=== PATIENT | female | born 1995 | race Caucasian/White ===

== ENCOUNTER 2019-06-15 00:19 | Emergency (ER) | payer MEDICAID ==
[2019-06-15] MEDS ORDERED: 0.9 % SODIUM CHLORIDE 1,000 ML BAG IV ONE (00:24)
[2019-06-15] MEDS ORDERED: LORAZEPAM 2 MG/ML VIAL IV ONE (00:24)
[2019-06-15] MEDS ORDERED: DEXTROSE 50 % IVP 50 ML DISP.SYRIN IVP ONE (00:30)
--- NOTE | 2019-06-15 00:31 | Emergency Department Record ---
History of Present Illness - General Stated Complaint: UNRESPONSIVE Time Seen by Provider: 06/15/19 00:22 Source: Patient Mode of Arrival: Ambulatory Limitations: No limitations - History of Present Illness Initial Comments: 23 yo female to male transitioning patient presents with about 15 minutes of altered mental status. The mother brought the patient by private car. She st ates the patient has depression, bulimia with frequent nausea and vomiting. He was noted to have blood in the vomit at about 11:45pm. The patient checked his glucose on mother's glucometer and it was 45. The patient took 5 glucose tablets. The patient has a history of similar with admission for malnutrition. He has a history of esophageal injury from vomiting not requiring surgery. The mother states they got in the car to come to the hospital due to the vomiting. Miles was conversing normally. He then became unresponsive. MD Complaint: Altered mental status -: Minutes(s) Severity: Moderate Consistency: Constant Context: Other Associated Symptoms: Other - Related Data Home Medications Medication Instructions Recorded Confirmed Last Taken Buspirone HCl [Buspar] 30 mg PO DAILY 06/15/19 06/15/19 Unknown Lamotrigine [Lamictal] 75 mg PO DAILY 06/15/19 06/15/19 Unknown Potassium Chloride [Klor-Con] 20 meq PO DAILY 06/15/19 06/15/19 Unknown Testosterone Enanthate [Xyosted] 1 ml IV ASDIR 06/15/19 06/15/19 Unknown Allergies Allergy/AdvReac Type Severity Reaction Status Date / Time No Known Drug Allergies Allergy Verified 06/15/19 00:51 Review of Systems ROS unobtainable: Other (Unresponsive) Physical Exam - General General Appearance: Other (Unresponsive on arrival) Limitations: Altered mental status - Head Head exam: Atraumatic, Normocephalic, Normal inspection - Eye Eye exam: Normal appearance, PERRL. negative: Conjunctival injection - ENT ENT exam: Normal exam, Mucous membranes moist Ear exam: Normal external inspection Nasal Exam: Normal inspection Mouth exam: Normal external inspection - Neck Neck exam: Normal inspection, Full ROM - Respiratory Respiratory exam: Normal lung sounds bilaterally, Other (Shallow but spontaneous respirations). negative: Respiratory distress, Rhonchi, Stridor, Wheezes - Cardiovascular Cardiovascular Exam: Normal rhythm, Normal heart sounds, Bradycardia - GI/Abdominal GI/Abdominal exam: Soft, Normal bowel sounds. negative: Distended, Guarding, Tenderness - Rectal Rectal exam: Deferred - exam: Other (Female genitalia) - Extremities Extremities exam: Normal inspection - Back Back exam: Reports: Normal inspection - Neurological Neurological exam: Altered. negative: Alert - Psychiatric Psychiatric exam: Other (unresponsive). negative: Agitated, Anxious, Normal af fect, Normal mood - Skin Skin exam: Diaphoretic Course - Reevaluation(s) Reevaluation #1: On arrival the patient was found unresponsive in the car pale and sweaty. The patient was brought into the Trauma bay. The patient had spontaneous respirations. Initial BP 75/. The patient was agitated an not focusing but not seizing. D50 was empirically given based on mother's history. Accu check was 90. After about 10 minutes the patient calmed and opened his eyes. He protected his gag during the initial phase on evaluation and had spontaneous respirations. Initial rhythm was sinus bradycardia without ectopy on the monitor with a rate around 50 06/15/19 00:31 06/15/19 00:46 The patient is now cooperative and following verbal commands. He responds to short questions with short answers (Yes/No) correctly Says his throat hurts EKG #1: 00:39 Rate: 53 Rhythm: sinus veronique [place]: normal Intervals: normal ST segments: normal Prior: none Repeat glucose is 137 06/15/19 00:49 The CBC was normal The UDS was negative The HCG is negative 06/15/19 00:58 The patient is now fully awake and alert. He states he had been vomiting most of the day. The blood started late in the evening. He states he vomits daily. His admission for UGI bleed was in February in [place]. He states "micro tears" were found on a swallow study. No scope was performed at that time. 06/15/19 01:01 06/15/19 01:04 The Tox screens are negative (Alcohol, Tylenol, Acetaminophen) 06/15/19 01:09 The patient is doing well. He states he has some upper chest discomfort. CXR completed I recommend admission due to the unresponsive episode, hypoglycemia, vomiting blood. The patient prefers to be in [facility] where her primary care are and psychiatric care providers are located 06/15/19 01:11 The K is reported now at 2.8 KCL supplementation ordered 06/15/19 01:12 06/15/19 01:13 The patient's PCP is Dr Christianson [facility] will be contacted for transfer 06/15/19 01:18 06/15/19 01:29 Dr Burgos accepts the patient for transfer Medical Decision Making - Lab Data Result diagrams: 06/15/19 00:20 06/15/19 00:20 Disposition Disposition: Transfer Clinical Impression: Unresponsive episode, Hypoglycemia, Hypokalemia Syncope Qualifiers: Syncope type: unspecified Qualified Code(s): R55 - Syncope and collapse Hematemesis Qualifiers: Nausea presence: unspecified Qualified Code(s): K92.0 - Hematemesis Disposition: Acute Care Hospital Transfer Transfer To: [facility] Reason For Transfer: Hematemasis, Hypoglycemia, Accepting Physician: Dr Burgos Time Discussed w/Accepting Physician: 01:17 Condition: (2) Stable Time of Disposition: 01:17 Quality - Quality Measures Quality Measures: N/A - Blood Pressure Screening Does Patient Have Any of the Following: No Blood Pressure Classification: Normal BP Reading Systolic Measurement: 100 Diastolic Measurement: 70 Screening for High Blood Pressure: < Normal BP, F/U Not Required > [G8783]
[2019-06-15 00:36] LABS: ABSOLUTE NEUTROPHIL COUNT 6.39; BASO % 0.3 % (0-6); EOS % 1.4 % (0-6); GRAN % 63.8 % (47-80); HEMATOCRIT 45.1 % (35.0-47.0); HEMOGLOBIN 15.4 gm/dl (11.6-16.0); LYMPH % 27.9 % (16-45); MEAN CELL VOLUME 94.7 fl (81-97); MEAN CORPUSCULAR HEMOGLOBIN 32.4 pg (27-33); MEAN CORPUSCULAR HGB CONC 34.1 g/dl (32-36); MEAN PLATELET VOLUME 9.1 fl (7.4-10.4); MONO % 6.6 % (0-9); PLATELET COUNT 352 K/uL (130-400); RED BLOOD COUNT 4.76 M/uL (3.80-5.40); RED CELL DISTRIBUTION WIDTH 13.8 % (11.5-14.5)
[2019-06-15 00:43] LABS: URINE APPEARANCE CLEAR; URINE BILIRUBIN NEGATIVE (NEGATIVE); URINE BLOOD NEGATIVE (NEGATIVE); URINE COLOR YELLOW; URINE GLUCOSE (UA) NEGATIVE (NEGATIVE); URINE KETONE NEGATIVE (NEGATIVE); URINE LEUKOCYTE ESTERASE NEGATIVE (NEGATIVE); URINE NITRITE NEGATIVE (NEGATIVE); URINE UROBILINOGEN 0.2 E.U./dL (0.20 - 1.00)
[2019-06-15 00:44] LABS: BLOOD UREA NITROGEN 9 mg/dL (6-20); CREATININE 1.2 mg/dL (0.5-0.9); EST GLOMERULAR FILTRATION RATE > 60 mL/min
[2019-06-15 00:45] LABS: LIPASE 34 U/L (13-60); TOTAL PROTEIN 7.3 g/dL (6.6-8.7)
[2019-06-15 00:47] LABS: GLUCOSE,RANDOM 92 mg/dL (74-109)
[2019-06-15 00:48] LABS: AMPHETAMINE SCREEN URINE NOT DETECTED; BARBITURATE SCREEN URINE NOT DETECTED; BENZODIAZEPINE SCREEN URINE NOT DETECTED; COCAINE SCREEN URINE NOT DETECTED; HCG,QUALITATIVE URINE NEGATIVE (NEGATIVE); METHADONE SCREEN URINE NOT DETECTED; METHAMPHETAMINE SCREEN NOT DETECTED; OPIATE SCREEN URINE NOT DETECTED; OXYCODONE SCREEN URINE NOT DETECTED; PHENCYCLIDINE SCREEN URINE NOT DETECTED; PROPOXYPHENE SCREEN URINE NOT DETECTED; THC SCREEN URINE NOT DETECTED; TRICYCLIC ANTIDEPRESSANT SCRN NOT DETECTED
[2019-06-15 00:50] LABS: ACETAMINOPHEN < 5.0 ug/mL (10.0-30.0); ALB/GLOB RATIO 1.9 (1.1-1.8); ALBUMIN 4.8 g/dL (4.0-5.0); ALKALINE PHOSPHATASE 55 U/L (35-104); ALT/SGPT 18 U/L (<33); AST/SGOT 27 U/L (10.0-35.0); SALICYLATE < 0.3 mg/dL (2.8-20)
[2019-06-15] MEDS ORDERED: PANTOPRAZOLE SODIUM IV 40 MG VIAL IVP ONE (00:51)
[2019-06-15 01:01] LABS: THYROID STIMULATING HORMONE 4.91 uIU/mL (0.270-4.20)
[2019-06-15] MEDS ORDERED: SOD CHLOR 0.9% WITH KCL 40MEQ 40 MEQ/1,000 ML IV.SOLN IV ONE (01:11)
--- NOTE | 2019-06-15 01:14 | RADIOLOGY REPORT ---
EXAMINATION: Single View Chest EXAM DATE: 06/15/2019 1:10 AM TECHNIQUE: Single view chest INDICATION: unresponsive, vomiting COMPARISON: None. ENCOUNTER: Not applicable FINDINGS: The heart, mediastinum, and pulmonary vasculature are normal. No lung consolidation or pleural effu sions are present. No pneumothorax is present. IMPRESSION: No acute cardiopulmonary disease is present. Dictated by: Delphine Anderson MD on 06/15/2019 1:11 AM. .
[2019-06-15] MEDS ORDERED: MVI, ADULT NO.4 WITH VIT K 10 ML, THIAMINE HCL IV 100 MG in SOD CHLOR 0.9% WITH KCL 40M... IV ONE ×3 (01:29)
== END 2019-06-15 02:05 | disposition short-term general hospital (02) ==
LOC: ER 00:19
DX: K92.0 Hematemesis (principal); R55 Syncope and collapse; R41.82 Altered mental status, unspecified; E87.6 Hypokalemia; R04.2 Hemoptysis; R07.89 Other chest pain; F50.2 Bulimia nervosa; Z68.1 Body mass index [BMI] 19.9 or less, adult; F32.9 Major depressive disorder, single episode, unspecified; F17.290 Nicotine dependence, other tobacco product, uncomplicated
CPT/HCPCS: 99285 ×2; 96374; 96375; 83735; 83690; 85025; 80053; 36416; 82948; 81003; 84443; 81025; 80305; 71045; 93005; G0480 ×3; 80320; 80329; 93010; C9113; J3411; J7030